=== PATIENT | male | born 1960 | race Caucasian/White ===

== ENCOUNTER 2021-02-05 11:06 | Inpatient (IN) ==
[2021-02-05] MEDS ORDERED: NITROGLYCERIN 2% OINT 1 INCH/GM PACK TOP STA (12:06)
[2021-02-05] MEDS ORDERED: NITROGLYCERIN SL 0.4 MG TABLET SL PRN (12:06)
[2021-02-05 12:33] LABS: Red Blood Count 4.49 MC/CUMM (3.8-5.5); White Blood Count 4.9 T/CUMM (4-12)
[2021-02-05 12:34] LABS: Basophils % 0.8 % (0.0-0.8); Eosinophils # 0.1 10*3/uL (0.0-0.87); Eosinophils % 1.4 % (0.00-10.9); Hematocrit 44.1 VOL% (42.0-52.0); Hemoglobin 14.7 GM/DL (14.0-18.0); Immature Granulocytes % 0.2 %; Immature Granulocytes Absolute 0.01 #; Lymphocytes # 1.3 10*3/uL (1.4-4.0); Lymphocytes % 26.7 % (21.2-54.2); Mean Corpuscular HGB Conc 33.3 GM/DL (32-36); Mean Corpuscular Volume 98.2 FL (87-102); Mean Platelet Volume 9.7 FL (9.6-12.0); Monocytes % 11.5 % (1.7-12.7); Neutrophils % 59.4 % (38.7-73.9); Platelet Count 145 T/CUMM (130-400)
[2021-02-05 12:40] LABS: Calcium 8.6 MG/DL (8.5-10.1); Potassium 3.7 MMOL/L (3.5-5.1)
[2021-02-05 12:42] LABS: Partial Thromboplastin Time 26.2 SECS (23.9-33.8)
[2021-02-05] MEDS ORDERED: ALBUTEROL 2.5 MG/3 ML NEB RESP TX STA (12:51)
[2021-02-05] MEDS ORDERED: ENOXAPARIN 100 MG/ML SYRINGE SUBCUT STA (14:54)
[2021-02-05] MEDS ORDERED: hydrALAZINE 20 MG/1 ML VIAL IV PRN (15:22)
[2021-02-05] MEDS ORDERED: GLUCAGON 1 MG VIAL IM PRN (15:22)
[2021-02-05] MEDS ORDERED: ONDANSETRON 4 MG/2 ML VIAL IV PRN (15:22)
[2021-02-05] MEDS ORDERED: MORPHINE 2 MG/1 ML SYRINGE IV PRN (15:22)
[2021-02-05] MEDS ORDERED: DEXTROSE 50% 25 GM/50 ML VIAL IV PRN (15:22)
[2021-02-05] MEDS ORDERED: LORazepam 2 MG/1 ML VIAL IV PRN ×2 (15:27→15:45)
[2021-02-05] MEDS ORDERED: chlordiazePOXIDE 25 MG CAPSULE PO PRN (15:40)
[2021-02-05] MEDS ORDERED: PHENYLEPH/MINERAL OIL/PETROLAT 57 GM TUBE TOP PRN (15:45)
[2021-02-05 19:51] LABS: Hematocrit 40.3 VOL% (42.0-52.0); Hemoglobin 13.9 GM/DL (14.0-18.0)
[2021-02-05] MEDS: MULTIVITAMIN (CENTRUM) TABLET PO SCH (20:41)
[2021-02-05] MEDS: THIAMINE 100 MG TABLET PO SCH (20:41)
[2021-02-05] MEDS: FOLIC ACID 1 MG TABLET PO SCH (20:41)
[2021-02-05] MEDS: ALBUTEROL/IPRATROPIUM 3 ML NEB RESP TX SCH ×2 (21:38→23:50)
[2021-02-05 21:57] LABS: Hematocrit 40.3 VOL% (42.0-52.0)
[2021-02-05] MEDS: SODIUM CHLORIDE 0.9% 1,000 ML IV SCH (22:29)
[2021-02-06] MEDS ORDERED: ENOXAPARIN 100 MG/ML SYRINGE SUBCUT SCH (03:00)
[2021-02-06 07:04] LABS: Basophils % 0.2 % (0.0-0.8); Eosinophils # 0.1 10*3/uL (0.0-0.87); Eosinophils % 1.7 % (0.00-10.9); Hematocrit 40.6 VOL% (42.0-52.0); Hemoglobin 14.1 GM/DL (14.0-18.0); Immature Granulocytes % 1.3 %; Immature Granulocytes Absolute 0.06 #; Lymphocytes # 0.9 10*3/uL (1.4-4.0); Mean Corpuscular HGB Conc 34.7 GM/DL (32-36); Mean Corpuscular Volume 95.5 FL (87-102); Mean Platelet Volume 9.8 FL (9.6-12.0); Monocytes % 11.9 % (1.7-12.7); Neutrophils % 66.9 % (38.7-73.9); Platelet Count 100 T/CUMM (130-400); Red Blood Count 4.25 MC/CUMM (3.8-5.5); Red Cell Distribution Width 13.7 % (9.3-17.3); White Blood Count 4.7 T/CUMM (4-12)
[2021-02-06 07:32] LABS: Albumin 3.1 G/DL (3.4-5.0); Bilirubin,Total 1.3 MG/DL (0.20-1.00); Calcium 8.8 MG/DL (8.5-10.1); Osmolality,Calculated 269.1 MOS/KG (273-304); Risk Ratio 2.34; Total Protein 6.5 G/DL (6.4-8.2)
[2021-02-06] MEDS: ALBUTEROL/IPRATROPIUM 3 ML NEB RESP TX SCH ×3 (07:35→20:45)
[2021-02-06] MEDS ORDERED: POTASSIUM CHLORIDE 20 MEQ TABLET PO ONE (07:56)
[2021-02-06] MEDS ORDERED: lisinopriL 10 MG TABLET PO SCH (09:00)
[2021-02-06] MEDS: FOLIC ACID 1 MG TABLET PO SCH (09:03)
[2021-02-06] MEDS: MULTIVITAMIN (CENTRUM) TABLET PO SCH (09:03)
[2021-02-06] MEDS: PANTOPRAZOLE 40 MG TABLET PO SCH (09:03)
[2021-02-06] MEDS: THIAMINE 100 MG TABLET PO SCH (09:03)
[2021-02-06] MEDS: NICOTINE 21 MG/24 HR PATCH TRANSDERM SCH (09:04)
[2021-02-06 09:25] LABS: Bilirubin,Urine Negative (Negative); Blood, Urine Negative (Negative); Glucose,Urine (UA) Negative (Negative); Ketones,Urine Negative (Negative); Mucus,Urine Occasional /LPF (Occasional); Nitrite,Urine Negative (Negative); Protein,Urine Negative; RBC,Urine 1 /HPF (0-4); Urine Appearance CLEAR (Clear); Urine Color Yellow (Yellow); Urine Specific Gravity 1.012 (1.001-1.035)
[2021-02-06] MEDS: SODIUM CHLORIDE 0.9% 1,000 ML IV SCH (10:41)
[2021-02-06] MEDS: MORPHINE 2 MG/1 ML SYRINGE IV PRN ×3 (11:24→22:42)
[2021-02-06] MEDS: APIXABAN 5 MG TABLET PO SCH (21:04)
[2021-02-06] MEDS: ATORVASTATIN 40 MG TABLET PO SCH (21:04)
[2021-02-07 06:12] LABS: Basophils % 0.3 % (0.0-0.8); Eosinophils # 0.2 10*3/uL (0.0-0.87); Eosinophils % 2.4 % (0.00-10.9); Hemoglobin 16.1 GM/DL (14.0-18.0); Immature Granulocytes % 0.5 %; Immature Granulocytes Absolute 0.04 #; Lymphocytes # 1.1 10*3/uL (1.4-4.0); Lymphocytes % 13.8 % (21.2-54.2); Mean Corpuscular Volume 97.3 FL (87-102); Mean Platelet Volume 10.5 FL (9.6-12.0); Monocytes % 7.8 % (1.7-12.7); Neutrophils % 75.2 % (38.7-73.9); Platelet Count 123 T/CUMM (130-400); Red Blood Count 4.73 MC/CUMM (3.8-5.5); Red Cell Distribution Width 13.8 % (9.3-17.3)
[2021-02-07 06:38] LABS: Calcium 9.5 MG/DL (8.5-10.1); Osmolality,Calculated 268.1 MOS/KG (273-304)
[2021-02-07] MEDS: ALBUTEROL/IPRATROPIUM 3 ML NEB RESP TX SCH ×4 (06:50→20:18)
[2021-02-07] MEDS ORDERED: POTASSIUM CHLORIDE 20 MEQ TABLET PO ONE (07:17)
[2021-02-07] MEDS ORDERED: ALUM/MAG/SIMETH/LIDO VISC 1:1 30 ML BOTTLE PO ONE (08:23)
[2021-02-07] MEDS: lisinopriL 20 MG TABLET PO SCH (09:09)
[2021-02-07] MEDS: APIXABAN 5 MG TABLET PO SCH ×2 (09:09→20:36)
[2021-02-07] MEDS: MULTIVITAMIN (CENTRUM) TABLET PO SCH (09:09)
[2021-02-07] MEDS: FOLIC ACID 1 MG TABLET PO SCH (09:09)
[2021-02-07] MEDS: PANTOPRAZOLE 40 MG TABLET PO SCH (09:09)
[2021-02-07] MEDS: THIAMINE 100 MG TABLET PO SCH (09:09)
[2021-02-07] MEDS: NICOTINE 21 MG/24 HR PATCH TRANSDERM SCH (09:12)
[2021-02-07] MEDS: MORPHINE 2 MG/1 ML SYRINGE IV PRN ×3 (11:21→20:36)
[2021-02-07] MEDS: SODIUM CHLORIDE 0.9% 1,000 ML IV SCH (13:11)
[2021-02-07] MEDS: CIPROFLOXACIN INJ 400 MG/200 ML PREMIX IV SCH (13:11)
[2021-02-07] MEDS: metroNIDAZOLE INJ 500 MG in PREMIX 1 EACH IV SCH ×2 (15:11→21:02)
[2021-02-07] MEDS: PANTOPRAZOLE 40 MG VIAL IV SCH (20:36)
[2021-02-07] MEDS: ATORVASTATIN 40 MG TABLET PO SCH (20:36)
[2021-02-08] MEDS: CIPROFLOXACIN INJ 400 MG/200 ML PREMIX IV SCH ×2 (00:06→13:16)
[2021-02-08] MEDS: SODIUM CHLORIDE 0.9% 1,000 ML IV SCH ×5 (00:20→20:02)
[2021-02-08 05:31] LABS: Basophils % 0.2 % (0.0-0.8); Eosinophils # 0.2 10*3/uL (0.0-0.87); Eosinophils % 2.9 % (0.00-10.9); Hematocrit 42.3 VOL% (42.0-52.0); Hemoglobin 14.5 GM/DL (14.0-18.0); Immature Granulocytes % 0.6 %; Immature Granulocytes Absolute 0.05 #; Lymphocytes # 0.9 10*3/uL (1.4-4.0); Lymphocytes % 10.7 % (21.2-54.2); Mean Corpuscular HGB Conc 34.3 GM/DL (32-36); Mean Corpuscular Volume 99.3 FL (87-102); Mean Platelet Volume 10.6 FL (9.6-12.0); Monocytes % 10.2 % (1.7-12.7); Neutrophils % 75.4 % (38.7-73.9); Platelet Count 101 T/CUMM (130-400); Red Blood Count 4.26 MC/CUMM (3.8-5.5); Red Cell Distribution Width 13.8 % (9.3-17.3); White Blood Count 8.3 T/CUMM (4-12)
[2021-02-08] MEDS: metroNIDAZOLE INJ 500 MG in PREMIX 1 EACH IV SCH ×3 (05:52→21:51)
[2021-02-08 06:00] LABS: Albumin 2.9 G/DL (3.4-5.0); Bilirubin,Total 1.2 MG/DL (0.20-1.00); Calcium 9.3 MG/DL (8.5-10.1); Potassium 3.4 MMOL/L (3.5-5.1); Total Protein 6.4 G/DL (6.4-8.2)
[2021-02-08] MEDS: ALBUTEROL/IPRATROPIUM 3 ML NEB RESP TX SCH ×4 (06:05→20:30)
[2021-02-08] MEDS ORDERED: POTASSIUM CHLORIDE 20 MEQ TABLET PO ONE (07:18)
[2021-02-08] MEDS: MULTIVITAMIN (CENTRUM) TABLET PO SCH (08:51)
[2021-02-08] MEDS: APIXABAN 5 MG TABLET PO SCH ×2 (08:51→20:19)
[2021-02-08] MEDS: lisinopriL 20 MG TABLET PO SCH (08:51)
[2021-02-08] MEDS: FOLIC ACID 1 MG TABLET PO SCH (08:52)
[2021-02-08] MEDS: THIAMINE 100 MG TABLET PO SCH (08:52)
[2021-02-08] MEDS: PANTOPRAZOLE 40 MG VIAL IV SCH ×2 (08:52→20:19)
[2021-02-08] MEDS: NICOTINE 21 MG/24 HR PATCH TRANSDERM SCH (08:52)
[2021-02-08] MEDS: MORPHINE 2 MG/1 ML SYRINGE IV PRN ×2 (10:20→20:21)
[2021-02-08 12:17] LABS: Hepatitis B Core IgM Quant 0.12 Index; Hepatitis B Surface Ag Quant < 0.10 Index; Hepatitis B Surface Ag Result Non-Reactive (NonReactive); Hepatitis C Virus Ab Quant 0.17 Index; Hepatitis C Virus Ab Result Non-Reactive (NonReactive)
[2021-02-08] MEDS: ATORVASTATIN 40 MG TABLET PO SCH (20:19)
[2021-02-09] MEDS: CIPROFLOXACIN INJ 400 MG/200 ML PREMIX IV SCH ×2 (00:14→12:52)
[2021-02-09] MEDS: ALBUTEROL/IPRATROPIUM 3 ML NEB RESP TX SCH ×3 (01:25→13:30)
[2021-02-09] MEDS: SODIUM CHLORIDE 0.9% 1,000 ML IV SCH ×3 (04:30→13:24)
[2021-02-09 05:34] LABS: Basophils % 0.2 % (0.0-0.8); Eosinophils # 0.2 10*3/uL (0.0-0.87); Eosinophils % 2.5 % (0.00-10.9); Hematocrit 40.9 VOL% (42.0-52.0); Hemoglobin 13.8 GM/DL (14.0-18.0); Lymphocytes # 0.9 10*3/uL (1.4-4.0); Lymphocytes % 10.4 % (21.2-54.2); Mean Corpuscular HGB Conc 33.7 GM/DL (32-36); Mean Platelet Volume 10.2 FL (9.6-12.0); Monocytes % 11.9 % (1.7-12.7); Neutrophils % 74.5 % (38.7-73.9); Platelet Count 110 T/CUMM (130-400); Red Blood Count 4.13 MC/CUMM (3.8-5.5); Red Cell Distribution Width 13.7 % (9.3-17.3); White Blood Count 8.8 T/CUMM (4-12)
[2021-02-09 05:41] LABS: Calcium 9.3 MG/DL (8.5-10.1); Osmolality,Calculated 263.4 MOS/KG (273-304); Potassium 3.7 MMOL/L (3.5-5.1)
[2021-02-09] MEDS: metroNIDAZOLE INJ 500 MG in PREMIX 1 EACH IV SCH (06:33)
[2021-02-09] MEDS ORDERED: methylPREDNISolone SOD SUC 125 MG/2 ML VIAL IV ONE (07:42)
[2021-02-09] MEDS: lisinopriL 20 MG TABLET PO SCH (08:46)
[2021-02-09] MEDS: FOLIC ACID 1 MG TABLET PO SCH (08:46)
[2021-02-09] MEDS: MULTIVITAMIN (CENTRUM) TABLET PO SCH (08:46)
[2021-02-09] MEDS: APIXABAN 5 MG TABLET PO SCH (08:47)
[2021-02-09] MEDS: NICOTINE 21 MG/24 HR PATCH TRANSDERM SCH (08:47)
[2021-02-09] MEDS: THIAMINE 100 MG TABLET PO SCH (08:47)
[2021-02-09] MEDS: PANTOPRAZOLE 40 MG VIAL IV SCH (08:48)
[2021-02-09] MEDS: MORPHINE 2 MG/1 ML SYRINGE IV PRN (08:49)
[2021-02-09 13:33] VITALS: BP 148/80
== END 2021-02-09 16:10 | disposition home or self-care (01) | DRG 438 ==
LOC: N.EDINP 11:06 → N.ED 11:06 → SUATTDRO 15:22 → N.TELES 18:36
PROVIDERS: ADMIT Internal Medicine; ATTEND Internal Medicine